=== PATIENT | female | born 1945 | race Caucasian/White ===

== ENCOUNTER 2016-11-04 05:54 | Day surgery (SDC) | payer MEDICARE, OTHER ==
[~2016-11-04] VITALS: Ht 162.6 cm; Wt 76.1 kg
--- NOTE | ~2016-11-04 | OR ---
PATIENT'S NAME: MUSTAPHA QUINONES [facility] AGE: 71 Y [address] ROOM: [place] [address] LOCATION: [facility] [place] ADMIT DATE: 11/04/2016 OR/Procedure Report DISCHARGE DATE: FAMILY PHYSICIAN: GREGORY BALL ATTENDING PHYSICIAN: Hernan Cheatham SURGEON: Hernan Cheatham MD FOOT CASTER: Gabrielle Olson PA-C. DATE OF PROCEDURE: 11/04/2016 PREOPERATIVE DIAGNOSES: 1. Cholelithiasis with chronic cholecystitis. 2. Mild elevation of liver function tests. 3. Community-acquired left lower lobe pneumonia. POSTOPERATIVE DIAGNOSES: 1. Cholelithiasis with chronic cholecystitis. 2. Mild elevation of liver function tests. 3. Community-acquired left lower lobe pneumonia. PROCEDURE PERFORMED: Laparoscopic cholecystectomy with intraoperative cholangiogram. ANESTHESIA: General endotracheal. ESTIMATED BLOOD LOSS: Less than 10 mL. SPECIMEN: Gallbladder. REASON FOR PROCEDURE: The patient is a 71-year-old female, who has had a rather confusing history. She has been treated for some time for upper respiratory issues and was told she had influenza. She has been on antibiotics and steroids. She has just generally not been feeling well. She has had some abdominal pain, but this has not been a major issue. Recently, she was found to have some mild elevation of her liver function tests. An ultrasound was ordered, which showed cholelithiasis and some mild gallbladder wall thickening. A recent x-ray though also showed a left lower lobe pneumonia. It was difficult to tell exactly what her issues were, but with a gallbladder wall thickening and elevation of her liver function tests, it was felt like there was enough concern to proceed with cholecystectomy. FINDINGS: The patient had a small amount of ascites, which was unexpected. The source of this was unclear. The gallbladder had some mild chronic wall thickening and some inflammation around the gallbladder, but the gallbladder was not distended or overly thick walled. Certainly, did not appear to be acute cholecystitis. The cystic duct was somewhat enlarged. We ended up PATIENT'S NAME: MUSTAPHA QUINONES [facility] AGE: 71 Y [address] ROOM: [address] [address] LOCATION: [facility] [place] ADMIT DATE: 11/04/2016 OR/Procedure Report DISCHARGE DATE: FAMILY PHYSICIAN: PHYSICIAN, NO ATTENDING PHYSICIAN: Hernan Cheatham doing a cholangiogram, which showed a mildly dilated common duct. It showed delayed flow into the duodenum, but we were able to get contrast through. No clear stones were seen, but it was not a particularly clear cholangiogram because of some leakage of contrast. PROCEDURE IN DETAIL: The patient was taken to the operating suite and placed in the supine position. After general endotracheal anesthesia was obtained, the abdomen was prepped with ChloraPrep and sterilely draped. Marcaine was infiltrated into the incision sites. A 2 cm infraumbilical incision was made. The fascia was grasped and elevated and a Veress needle was used to obtain a pneumoperitoneum. An 11 mm trocar was then passed across the abdominal wall. Three subxiphoid 5 mm trocars were all placed under direct visualization. A small amount of ascites was noted up over the liver bed, but also in the gutters and in the pelvis. The etiology of this was unclear. The bowel was not dilated. The gallbladder was fairly large and had some mild chronic wall thickening, but no distention or acute cholecystitis. The fundus of the gallbladder was grasped and elevated. A second grasper was placed on the infundibulum. We carefully dissected through the neck area, the cystic artery was stapled and divided. We skeletonized the cystic duct up to the gallbladder wall. The cystic duct did seem somewhat prominent, I decided to go ahead with a cholangiogram. We had trouble with some leaking around this cholangiogram catheter but we were able to confirm our anatomy. The common duct seems somewhat full and there was delayed flow of contrast in the duodenum. I could not say I saw clear filling defects, however. The quality of the cholangiogram was not ideal because of some leaking around the catheter. We went ahead and withdrew the cholangiogram catheter. The cystic duct was closed with a PDS Endoloop. The gallbladder was then mobilized free of the liver bed using cautery. Once fully mobilized, the gallbladder was removed from the umbilicus. We did have to withdraw multiple small to medium size stones from the gallbladder. We then washed out the right upper quadrant. All irrigation was removed. There was no signs of any ongoing bleeding or bile leak. The source of the ascites is unclear, I would presume it is related to maybe more severe cholecystitis in the past or possibly pancreatitis, so this is just conjecture. The pneumoperitoneum was evacuated and the trocars were withdrawn. The fascia at the umbilicus was closed with a Vicryl suture. The skin incisions were closed with subcuticular Monocryl. Benzoin, Steri-Strips, and gauze dressings were applied. POSTPROCEDURE PLAN: The patient will be sent to recovery and admitted for observation. We will continue her Omnicef for the community-acquired pneumonia. We will advance her diet as tolerated. We will plan on rechecking her lab work in the morning. PATIENT'S NAME: MUSTAPHA QUINONES [facility] AGE: 71 Y [address] ROOM: [place] [address] LOCATION: [facility] [place] ADMIT DATE: 11/04/2016 OR/Procedure Report DISCHARGE DATE: FAMILY PHYSICIAN: PHYSICIAN, NO ATTENDING PHYSICIAN: Hernan Cheatham MD LJ MARTINEZ/gladysl /[id number] CC: CARLIN SHARMA PA-C FAX:[phone] d: 11/04/16 1025 t: 11/07/16 1222, OPERATIVE SUMMARY
[~2016-11-04 05:54] MED LIST: ASPIRIN LO-DOSE81 MG PO; CRANBERRY TABL1 EACH PO; LEVOTHROID (SY25 MCG PO; MULTI VITAMIN1 EACH PO; OMNICEF 300MG300 MG PO; PROBIOTIC1 EAC1 PO; SALMON OIL 1,01 EACH PO; VITAMIN D1000 UNIT PO
[2016-11-04] MEDS ORDERED: NATURAL LUTEIN20 MG PO (06:46)
[2016-11-04] MEDS ORDERED: MULTI FOR HER1 EACH PO (06:46)
[2016-11-04] MEDS ORDERED: CALCIUM600 MG PO (06:50)
[2016-11-04 06:56] LABS: BASOPHIL # 0.1 K/uL (0.0-0.2); BASOPHIL % 1.1 %; EOSINOPHIL # 0.2 K/uL (0.0-0.5); EOSINOPHIL % 1.8 %; HEMATOCRIT 37.8 % (33.0-46.0); HEMOGLOBIN 12.2 g/dL (10.0-15.0); IMMATURE GRANULOCYTE % 0.4 %; LYMPHOCYTE # 1.9 K/uL (0.8-4.0); LYMPHOCYTE % 22.5 %; MCHC 32.3 gm/dL (32.0-36.5); MCV 89.8 fl (83.0-98.0); MONOCYTE # 0.5 K/uL (0.0-1.0); MONOCYTE % 5.4 %; MPV 10.9 fl (9.4-12.4); NEUTROPHIL # (ANC) 5.7 K/uL (1.8-7.8); NEUTROPHIL % 68.8 %; NRBC % 0 /100WBC (0-0.00); PLATELET COUNT 209 K/uL (150-450); RBC 4.21 M/uL (3.50-5.50); WBC 8.3 K/uL (4.0-11.0)
[2016-11-04] MEDS ORDERED: PROVENTIL OR V6.7 GM INH (07:02)
[2016-11-04 07:06] LABS: ALK PHOS 155 IU/L (33-138); ALT 115 IU/L (12-78); AST 118 IU/L (10-40); BLOOD UREA NITROGEN 22 mg/dL (6-24); CALCIUM 8.4 mg/dL (8.5-10.5); CHLORIDE 108 mMol/L (96-110); CO2 26 mMol/L (22-32); CREATININE 0.9 mg/dL (0.5-1.1); ESTIMATED GFR (MDRD EQUATION) > 60; SODIUM 142 mMol/L (135-145); TOTAL BILIRUBIN 0.7 mg/dL (0.0-1.5); TOTAL PROTEIN 6.6 g/dL (6.0-8.4)
--- NOTE | 2016-11-04 17:33 | NUR ---
Significant Event:Here from PACU at 1530.Has 4 abd.stab sites with only Rt.side abd one with sm amt red drng--all others D/I.Has voided.Eating & drinking well.No N/V.No pain.Has been up,terry well.Home tomorrow. Follow up:
--- NOTE | 2016-11-05 04:48 | NUR ---
Significant Event: ALERT AND ORIENTATED X4. AMBULATES WITH STAND BY ASSIST. VS WNL ON RA. HAS 4 STAB SITES DRESSINGS IN TACT WITH NO DRAINAGE. IV SL. REGULAR DIET. NO COMPLAINTS OF PAIN OR DISCOMFORT. VERY PLEASANT AND COOPERAIVE WITH CARES. PLAN TO GO HOME TODAY. Follow up:
[2016-11-05 06:01] LABS: HEMATOCRIT 36.6 % (33.0-46.0); HEMOGLOBIN 11.4 g/dL (10.0-15.0); MCH 28.8 pg (27.0-34.0); MCHC 31.1 gm/dL (32.0-36.5); MCV 92.4 fl (83.0-98.0); MPV 11.1 fl (9.4-12.4); RBC 3.96 M/uL (3.50-5.50); WBC 7.9 K/uL (4.0-11.0)
[2016-11-05 06:17] LABS: ALBUMIN 2.8 gm/dL (3.5-5.0); ANION GAP 13.7 (10.0-19.0); CALCIUM 8.2 mg/dL (8.5-10.5); CREATININE 1.2 mg/dL (0.5-1.1); POTASSIUM 4.7 mMol/L (3.7-5.1); TOTAL PROTEIN 6.2 g/dL (6.0-8.4)
[2016-11-05 06:26] LABS: TOTAL BILIRUBIN 0.5 mg/dL (0.0-1.5)
[2016-11-05] MEDS ORDERED: NORCO 5-325 TA1 EACH PO (13:18)
--- NOTE | 2016-11-05 19:08 | NUR ---
Patient was discharged home in stable condition. She has 4 lap sites on the abdomen with 2 of them having small amounts of bloody drainage. IV was removed. Education was given about DVTs, norco, and lap peter. She was instructed to follow up with her PCP in 1-2 weeks.
== END 2016-11-05 13:45 | disposition disaster alternative care site (69) ==
LOC: GMSU 05:54 → GSDC 05:54 → GMSU 14:41 → GSDC 11-05 13:45
PROVIDERS: Surgery
PROC: 0FT44ZZ Resection of Gallbladder, Percutaneous Endoscopic Approach (ICD-10-PCS; principal; 2016-11-04)
PROC: BF03YZZ Plain Radiography of Gallbladder and Bile Ducts using Other Contrast (ICD-10-PCS; 2016-11-04)
DX: K80.10 Calculus of gallbladder with chronic cholecystitis without obstruction (principal); E03.9 Hypothyroidism, unspecified; R79.89 Other specified abnormal findings of blood chemistry; J18.8 Other pneumonia, unspecified organism; Z88.2 Allergy status to sulfonamides; Z98.890 Other specified postprocedural states
CPT/HCPCS: J0694; J1100; J1720; J2001; J2405; J7030